=== PATIENT | female | born 1990 | race Caucasian/White ===

== ENCOUNTER → 2018-05-24 | Outpatient (CLI) | payer BC ==
--- NOTE | 2018-05-24 07:50 | US ---
EXAMINATION TYPE: US abdomen complete DATE OF EXAM: 05/24/2018 COMPARISON: NONE CLINICAL HISTORY: K80.20 Cholecystolithiasis. RUQ discomfort x 2 weeks, patient is 28 weeks . EXAM MEASUREMENTS: Liver Length: 14.3 cm Gallbladder Wall: 0.2 cm CBD: 0.3 cm Spleen: 11.3 cm Right Kidney: 9.4 x 5.9 x 4.7 cm Left Kidney: 10.4 x 4.9 x 5.3 cm Study somewhat technically difficult and limited, exam done intercostally due to patient 28 weeks p regnant. Pancreas: visualized portions wnl, head and tail limited by overlying midline bowel gas Liver: wnl Gallbladder: wnl Evidence for sonographic Baker's sign: no CBD: visualized portions wnl, limited by overlying bowel gas Spleen: wnl Right Kidney: There is mild right-sided hydronephrosis of . Left Kidney: wnl Upper IVC: wnl Abd Aorta: visualized portions wnl, mid portion obscured by overlying midline bowel gas The liver is homogenous. The intrahepatic portion of the IVC and proximal abdominal aorta are within normal limits. There is no evidence of cholelithiasis. Common bile duct is unremarkable. The visu alized portions of the pancreas are homogenous. The spleen is unremarkable. No renal lesions are se en. IMPRESSION: 1. Mild right-sided hydronephrosis of .
[2018-05-24 13:53] LABS: ALT 26 U/L (9-52); AST 26 U/L (14-36); Bilirubin, Delta 0.2 mg/dL (0.0-0.2); Bilirubin,Unconjugated 0.4 mg/dL (0.0-1.1); GGT <10 U/L (12-43); Total Bilirubin 0.6 mg/dL (0.2-1.3)
== END | disposition home or self-care (01) ==
LOC: RADUSWWP 06:59
PROVIDERS: ATTEND Obstetrics & Gynecology
DX: N13.30 Unspecified hydronephrosis (principal); K80.20 Calculus of gallbladder without cholecystitis without obstruction; Z33.1 Pregnant state, incidental
CPT/HCPCS: 36415; 76700; 82248; 82977; 84450; 84460

== ENCOUNTER 2018-08-05 13:43 | Inpatient (IN) | payer BC ==
[2018-08-10] MEDS ORDERED: METHYLERGONOVINE 0.2 MG/ML 1 ML AMP IM PRN (06:45)
[2018-08-10] MEDS ORDERED: OXYTOCIN 30 UNITS/500 ML NS 30 UNIT in SALINE 1 500ML.BAG IV SCH (06:45)
[2018-08-10] MEDS ORDERED: CARBOPROST TROMETHAMINE 250 MCG/ML 1 ML AMP IM PRN (06:45)
[2018-08-10] MEDS ORDERED: TERBUTALINE 1 MG/ML VIAL SQ PRN (06:45)
[2018-08-10] MEDS ORDERED: OXYTOCIN 10 UNIT/ML 1 ML VIAL IM PRN (06:45)
[2018-08-10] MEDS ORDERED: LIDOCAINE 0.5% (PF) 5 MG/ML (50 ML SDV) SQ PRN (06:45)
[2018-08-10 06:58] VITALS: BMI 27.1
[2018-08-10] MEDS: LACTATED RINGERS 1,000 ML IV SCH ×3 (07:00→13:31)
[2018-08-10 07:17] LABS: Basophils # (A) 0.1 k/uL (0-0.2); Basophils % (A) 0 %; Eosinophils # (A) 0.2 k/uL (0-0.7); Eosinophils % (A) 1 %; HCT 44.1 % (34.0-46.0); HGB 14.5 gm/dL (11.4-16.0); Lymphocytes # (A) 2.2 k/uL (1.0-4.8); Lymphocytes % (A) 14 %; MCH 29.5 pg (25.0-35.0); MCHC 32.9 g/dL (31.0-37.0); MCV 89.7 fL (80.0-100.0); Mean Platelet Volume 11.3; Monocytes # (A) 0.7 k/uL (0-1.0); Monocytes % (A) 4 %; Neutrophils # (A) 13.1 k/uL (1.3-7.7); Neutrophils % (A) 80 %; Platelet Count 176 k/uL (150-450); RBC 4.91 m/uL (3.80-5.40); RDW 12.9 % (11.5-15.5); WBC 16.4 k/uL (3.8-10.6)
[2018-08-10] MEDS ORDERED: fentaNYL (PF) 50 MCG/ML 5 ML AMP ONE (12:58)
[2018-08-10] MEDS ORDERED: ROPIVACAINE 5MG/ML 20ML VIAL ONE (12:58)
[2018-08-10] MEDS ORDERED: SODIUM CHLORIDE 0.9% 100 ML BAG ONE (12:58)
[2018-08-10] MEDS ORDERED: SIMETHICONE 80 MG CHEWABLE PO PRN (19:03)
[2018-08-10] MEDS ORDERED: diphenhydrAMINE 25 MG CAP PO PRN (19:03)
[2018-08-10] MEDS ORDERED: diphenhydrAMINE 50 MG CAP PO PRN (19:03)
[2018-08-10] MEDS ORDERED: BENZOCAINE/MENTHOL SPRAY 1 GM/SPRAY AEROSOL TOPICAL PRN (19:03)
[2018-08-10] MEDS ORDERED: ZOLPIDEM 5 MG TAB PO PRN (19:03)
[2018-08-10] MEDS ORDERED: HYDROCORTISONE 2.5% RECTAL CREAM 30 GM TUBE RECTAL PRN (19:03)
[2018-08-10] MEDS ORDERED: ACETAMINOPHEN TAB 325 MG TAB PO PRN (19:03)
[2018-08-10] MEDS ORDERED: diphenhydrAMINE 50 MG/ML 1 ML VIAL IVP PRN ×2 (19:03)
[2018-08-10] MEDS ORDERED: LANOLIN CREAM 5 GM TUBE TOPICAL PRN (19:03)
[2018-08-10] MEDS ORDERED: WITCH HAZEL 1 EACH MED..PAD TOPICAL PRN (19:03)
--- NOTE | 2018-08-10 19:05 | P.HPOB ---
History of Present Illness H&P Date: 08/10/18 Chief Complaint: Intrauterine at term: Induction of labor Ramandeep is a 28-year-old at 39 weeks gestation arise for induction of labor. Her Precis course has been, complicated by having an irregular heartbeat earlier in the which resolved she did undergo an echocardiogram which was normal. She also had dilated kidney but no other significant problems or competitions with the . She did see maternal medicine during course the . Pertinent labs could A+ blood type, Rh and but was negative. Rubella was immune, hepatitis B surface antigen RPR and HIV as well as GBS were all negative. All questions were answered for her prior to proceeding with induction. Everyone tracing was noted. She was dilated to 1-2 cm 70% effaced -3 station. Artificial rupture membranes was performed and clear fluid is noted. On physical exam vital signs are stable and afebrile. Heart regular, lungs clear, extremities are without pain. Abdomen soft gravid uterus is noted. Past Medical History Additional Past Medical History / Comment(s): Heart murmur History of Any Multi-Drug Resistant Organisms: None Reported Past Surgical History: Tonsillectomy Past Anesthesia/Blood Transfusion Reactions: No Reported Reaction Past Psychological History: No Psychological Hx Reported Smoking Status: Never smoker Past Alcohol Use History: None Reported Past Drug Use History: None Reported - Past Family History Mother Family Medical History: No Reported History Medications and Allergies Home Medications Medication Instructions Recorded Confirmed Type No Known Home Medications 08/10/18 08/10/18 History Allergies Allergy/AdvReac Type Severity Reaction Status Date / Time sulfamethoxazole Allergy Unknown Verified 08/10/18 06:44 [From ] Childhood trimethoprim [From ] Allergy Unknown Verified 08/10/18 06:44 Childhood Exam Osteopathic Statement: *. No significant issues noted on an osteopathic structural exam other than those noted in the History and Physical/Consult. Vital Signs Temp Pulse Resp BP Pulse Ox 08/10/18 06:37 98.0 F 94 16 138/83 97 Intake and Output 08/10/18 08/10/18 08/10/18 06:59 14:59 22:59 Other: Weight 71.668 kg - OBG Physical Exam Breast: both: normal (no masses) Abdomen: bowel sounds normal, no diffuse tenderness, no bruit present, no g uarding noted, no hepatomegaly, no splenomegaly, no mass Vulva: both: normal Vagina: normal moisture, no discharge Cervix: no lesion, no discharge Uterus: normal size, normal contour Adnexa: both: normal Anus/Rectum: normal perianal skin, no rectal mass, no hemorrhoids, heme negative Results Result Diagrams: 08/10/18 06:48 Abnormal Lab Results - Last 24 Hours (Table) 08/10/18 Range/Units 06:48 WBC 16.4 H (3.8-10.6) k/uL Neutrophils # 13.1 H (1.3-7.7) k/uL
--- NOTE | 2018-08-10 19:06 | P.PROBDLV ---
Vaginal Delivery Note - . Vaginal Delivery Note: Patient progressed complete and pushed with spontaneous vaginal delivery of a viable female over an intact perineum. Falling deliver the head anterior posterior shoulders were easily delivered with gentle downward upper traction followed by the remainder the baby. Mouth and nares were then bulb suctioned and baby was placed on mother's abdomen where the umbilical cord was clamped cut usual fashion. Nursery personnel was present to assume care. Placenta was then delivered intact. scores were 9 and 9 at one and 5 minutes Turner and the weight was 7 lbs. 1 oz. Both mother and baby are currently stable following delivery.
[2018-08-10] MEDS ORDERED: OXYTOCIN 20 UNITS/1000 ML NS 1,000 ML IV SCH (19:15)
[2018-08-10] MEDS: IBUPROFEN 600 MG TAB PO PRN (19:23)
[2018-08-10] MEDS: SENNOSIDES-DOCUSATE SODIUM 1 EACH TAB PO SCH (19:24)
[2018-08-11] MEDS: IBUPROFEN 600 MG TAB PO PRN ×3 (03:43→20:23)
[2018-08-11] MEDS: LACTATED RINGERS 1,000 ML IV SCH (08:53)
[2018-08-11] MEDS: SENNOSIDES-DOCUSATE SODIUM 1 EACH TAB PO SCH ×2 (09:04→20:24)
--- NOTE | 2018-08-11 10:29 | P.DS ---
Providers Date of admission: 08/10/18 06:32 Expected date of discharge: 08/11/18 Attending physician: Chip Lockett Primary care physician: [facility] Course: Ramandeep is doing very well post day 1. She is ambulating, voiding and she is tolerating her diet. She voices no complaints. Vital signs are stable and afebrile. Heart regular, lungs clear, extremities without pain. Abdomen soft uterus is firm and lochia is reported to be light. Assessment day 1. Plan discharged home follow up with me in 6 weeks. Prescription for Motrin was forwarded to her pharmacy and all questions were answered for her p rior to her discharge. Discharge instructions were thoroughly reviewed. She'll follow up in 6 weeks. Patient Condition at Discharge: Good Plan - Discharge Summary New Discharge Prescriptions: New Ibuprofen [Motrin] 600 mg PO Q6HR PRN #30 tab PRN Reason: Pain Discharge Medication List Ibuprofen [Motrin] 600 mg PO Q6HR PRN #30 tab 08/11/18 [Rx] Follow up Appointment(s)/Referral(s): Chip Lockett DO [Doctor of Osteopathic Medicine] - 6 Weeks Activity/Diet/Wound Care/Special Instructions: No heavy lifting, limit stairs and driving, and pelvic rest. If any high temperatures heavy bleeding, or severe pain call my office Discharge Disposition: HOME SELF-CARE
[2018-08-11 23:28] VITALS: TEMP 97.6
[2018-08-12 10:10] VITALS: BP 100/64; PULSE 62; RESP 16
[2018-08-12] MEDS: SENNOSIDES-DOCUSATE SODIUM 1 EACH TAB PO SCH (10:29)
== END 2018-08-12 10:30 | disposition home or self-care (01) | DRG 807 ==
LOC: 4FBP 08-10 06:32
PROVIDERS: ADMIT Obstetrics & Gynecology; ATTEND Obstetrics & Gynecology
PROC: 10E0XZZ Delivery of Products of Conception, External Approach (ICD-10-PCS; principal; 2018-08-10)
PROC: 3E0R3BZ Introduction of Anesthetic Agent into Spinal Canal, Percutaneous Approach (ICD-10-PCS; 2018-08-10)
PROC: 00HU33Z Insertion of Infusion Device into Spinal Canal, Percutaneous Approach (ICD-10-PCS; 2018-08-10)
PROC: 3E033VJ Introduction of Other Hormone into Peripheral Vein, Percutaneous Approach (ICD-10-PCS; 2018-08-10)
PROC: 10907ZC Drainage of Amniotic Fluid, Therapeutic from Products of Conception, Via Natural or Artificial Opening (ICD-10-PCS; 2018-08-10)
DX: O80 Encounter for full-term uncomplicated delivery (principal); Z37.0 Single live birth; Z3A.39 39 weeks gestation of pregnancy
CPT/HCPCS: 85025; 86850; 86900; 86901

== ENCOUNTER → 2020-04-07 | Outpatient (CLI) | payer BC | END | disposition home or self-care (01) | LOC: LABWHC1 14:03 | PROVIDERS: ATTEND Obstetrics & Gynecology | DX: N91.2 Amenorrhea, unspecified (principal) | CPT/HCPCS: 36415; 84702 ==

== ENCOUNTER → 2022-06-15 | Outpatient (CLI) | payer BC ==
[2022-06-15 14:57] LABS: Basophils # (A) 0.06 X 10*3/uL (0.00-0.10); Basophils % (A) 0.6 %; Eosinophils # (A) 0.26 X 10*3/uL (0.04-0.35); Eosinophils % (A) 2.7 %; HCT 48.4 % (37.2-46.3); Immature Grans, Automated 0.2 %; Lymphocytes # (A) 2.55 X 10*3/uL (0.90-5.00); Lymphocytes % (A) 26.2 %; MCH 28.3 pg (27.0-32.0); MCV 91.3 fL (80.0-97.0); Mean Platelet Volume 12.6 fL (9.5-12.2); Monocytes # (A) 0.55 X 10*3/uL (0.20-1.00); Monocytes % (A) 5.6 %; NRBC Per 100 WBC 0 /100 WBCS (0.0-0.0); Neutrophils % (A) 64.7 %; Platelet Count 229 X 10*3/uL (140-440); RDW 12.9 % (11.5-14.5); WBC 9.74 X 10*3/uL (4.50-10.00)
[2022-06-15 16:36] LABS: African American GFR (CKD) 115.8 (60.0-200.0); BUN/Creat Ratio 16.54 Ratio (12.00-20.00); Blood Urea Nitrogen 12.9 mg/dL (9.0-27.0); Calcium 9.9 mg/dL (8.7-10.3); Carbon Dioxide 25.6 mmol/L (20.0-27.5); Chloride 102 mmol/L (96-109); Chol/HDL Ratio 2.06 Ratio; Glucose 80 mg/dL (70-110); LDL Cholesterol,Calculated 83.6 mg/dL (0.0-131.0); Non-African American GFR(CKD) 99.9 (60.0-200.0); Potassium 4.4 mmol/L (3.5-5.5); Sodium 139 mmol/L (135-145); VLDL Calculation 11.72 mg/dL (5.00-40.00)
== END | disposition home or self-care (01) ==
LOC: LABWHC1 07:04
PROVIDERS: ATTEND Nurse Practitioner
DX: I34.0 Nonrheumatic mitral (valve) insufficiency (principal)
CPT/HCPCS: 36415; 80048; 80061; 84443; 85025

== ENCOUNTER → 2022-06-20 | Outpatient (CLI) | payer BC ==
[2022-06-20 23:36] LABS: Progesterone 19.8 ng/mL
[2022-06-21 00:21] LABS: Estradiol 96.2 pg/mL; Follicle Stimulating Hormone 4.3 mIU/mL; Luteinizing Hormone 13.7 mIU/mL; Testosterone 15.8 ng/mL (9.01-47.94)
[2022-06-21 00:36] LABS: Thyroid Peroxidase Antibodies 14.4 U/mL (0.0-33.0)
== END ==
LOC: LABWHC1 15:41
PROVIDERS: ATTEND Family Medicine
DX: R60.9 Edema, unspecified (principal); N91.4 Secondary oligomenorrhea; R00.1 Bradycardia, unspecified
CPT/HCPCS: 36415; 82626; 82670; 83001; 83002; 83880; 84144; 84403; 86376

== ENCOUNTER → 2022-06-23 | Outpatient (CLI) | payer BC ==
--- NOTE | 2022-06-23 10:16 | US ---
EXAMINATION TYPE: US transvaginal DATE OF EXAM: 06/23/2022 COMPARISON: NONE CLINICAL HISTORY: N91.4 SECONDARY OLIGOMENORRHEA. Irregular menses. No pain. TECHNIQUE: Transvaginal (TV) Date of LMP: 05/30/2023, EXAM MEASUREMENTS: Uterus: 7.7 x 4.4 x 4.2 cm Endometrial Stripe: 0.5 cm Right Ovary: 3.9 x 2.5 x 3.4 cm Left Ovary: 2.7 x 2.0 x 1.7 cm 1. Uterus: Retroverted wnl 2. Endometrium: wnl 3. Right Ovary: hypoechoic lesion with peripheral vascular flow= 1.9 x 1.9 x 1.9 cm 4. Left Ovary: follicles seen 5. Bilateral Adnexa: no free fluid 6. Posterior cul-de-sac: free fluid present IMPRESSION: 1. Solid appearing lesion within the right ovary with vascular flow follow-up is recommended. 2. Small amount of free fluid within the pelvis.
== END | disposition home or self-care (01) ==
LOC: RADUSWWP 09:36
PROVIDERS: ATTEND Family Medicine
DX: N91.4 Secondary oligomenorrhea (principal); N83.9 Noninflammatory disorder of ovary, fallopian tube and broad ligament, unspecified
CPT/HCPCS: 76830

== ENCOUNTER → 2022-06-28 | Outpatient (CLI) | payer BC ==
[2022-06-28 16:10] LABS: Prolactin 10.3 ng/mL (2.800-29.200)
[2022-06-28 20:20] LABS: Cancer Antigen 125 18.4 U/mL (0.0-30.1)
== END | disposition home or self-care (01) ==
LOC: LABWHC1 09:30
PROVIDERS: ATTEND Family Medicine
DX: N83.291 Other ovarian cyst, right side (principal)
CPT/HCPCS: 36415; 84146; 86304

== ENCOUNTER → 2022-07-01 | Outpatient (CLI) | payer BC ==
--- NOTE | 2022-07-01 14:16 | US ---
EXAMINATION TYPE: US transvaginal DATE OF EXAM: 07/01/2022 COMPARISON: 06/23/2022 CLINICAL HISTORY: R19.07 GENERALIZED INTRA-ABD AND PELVIC SWELLING,. follow up to previous TECHNIQUE: Transvaginal (TV). EXAM MEASUREMENTS: Uterus: 7.1 x 4.2 x 4.9 cm Endometrial Stripe: .3 cm Right Ovary: 4.2 x 2.5 x 2.6 cm Left Ovary: 3.4 x 1.7 x 2.1 cm 1. Uterus: Retroverted wnl 2. Endometrium: wnl 3. Right Ovary: follicles seen. Previous right solid mass is not clearly identified. 4. Left Ovary: follicles seen 5. Bilateral Adnexa: wnl 6. Posterior cul-de-sac: wnl IMPRESSION: 1. Unremarkable pelvic ultrasound. 2. Previous right ovarian solid mass is not identified. Follow-up examination in 3 months can be perf ormed for confirmation.
== END | disposition home or self-care (01) ==
LOC: RADUSWWP 13:34
PROVIDERS: ATTEND Family Medicine
DX: R19.07 Generalized intra-abdominal and pelvic swelling, mass and lump (principal)
CPT/HCPCS: 76830

== ENCOUNTER → 2022-09-12 | Outpatient (CLI) | payer BC ==
--- NOTE | 2022-09-12 21:03 | CT ---
EXAMINATION TYPE: CT soft tissue neck wo/w con DATE OF EXAM: 09/12/2022 COMPARISON: HISTORY: LUMB BEHIND LEFT EAR CT DLP: 574.2 mGycm CONTRAST: Patient injected with 60 mL of Isovue 300. TECHNIQUE: Axial images at 3 mm thick sections. Reconstructed images in the coronal plane and sagitt al plane are reviewed. FINDINGS: Limited CT sections are obtained the lung apices. The lung apices appear clear. CT neck: The torus tubarius and fossa of Rosenmuller are normal. [employer] Specialist spaces are normal. Ther e is an air-fluid level within the left maxillary sinus. Mucosal thickening soothe the right maxillar y sinus. Left septal deviation is noted. There is mucosal thickening within anterior and mid left eth moid air cells. Parotid glands appear normal and symmetrical. Submandibular glands, are normal. Parapharyngeal spac es are normal. No suspicious adenopathy is evident. There are scattered small lymph nodes through th e right neck. BB is placed inferior to the left ear. No suspicious masses are evident. Couple of small lymph nodes may be present. There is some narrowing of the hypopharynx of the posterior tongue. Direct visualization recommended. The epiglottis appears normal. Vallecula appears clear. Vocal cord level appear symmetrical. Thyroid as visualized is normal. Osseous structures are normal. IMPRESSIONS: 1. Some posterior tongue thickening may be present. Direct visualization recommended. 2. No suspicious underlying mass at the level marked by the BB under the left ear. Tiny lymph nodes a re present at this level.
== END | disposition home or self-care (01) ==
LOC: RADCTMAIN 08:47
PROVIDERS: ATTEND Family Medicine
DX: I88.1 Chronic lymphadenitis, except mesenteric (principal)
CPT/HCPCS: 70492; Q9967

== ENCOUNTER → 2022-10-03 | Outpatient (CLI) | payer BC ==
--- NOTE | 2022-10-03 13:06 | US ---
EXAMINATION TYPE: US transvaginal DATE OF EXAM: 10/03/2022 COMPARISON: US July 01 2022 CLINICAL INDICATION: Female, 32 years old with history of R19.07 Generalized pelvic lump; 2nd follow up for right ovarian mass seen in 2021 TECHNIQUE: Transvaginal exam only per patient's order Date of LMP: 09/10/2022 EXAM MEASUREMENTS: Uterus: 7.7 x 4.0 x 4.8 cm Endometrial Stripe: 0.7 cm Right Ovary: 2.8 x 1.8 x 3.3 cm Left Ovary: 3.8 x 2.0 x 3.1 cm 1. Uterus: retroverted 2. Endometrium: appears wnl 3. Right Ovary: multiple follicles 4. Left Ovary: multiple follicles with largest measuring 1.8cm 5. Bilateral Adnexa: wnl 6. Posterior cul-de-sac: wnl Retroverted uterus redemonstrated. Endometrial stripe within normal limits. No free fluid. Both ovaries are seen. Left ovary has a 1.8 cm prominent follicle or simple thin-walled cyst on curre nt study. No suspicious extra ovarian adnexal masses. IMPRESSION: No suspicious ovarian or adnexal masses on current exam.
== END | disposition home or self-care (01) ==
LOC: RADUSWWP 12:17
PROVIDERS: ATTEND Family Medicine
DX: R19.07 Generalized intra-abdominal and pelvic swelling, mass and lump (principal)
CPT/HCPCS: 76830